=== PATIENT | male | born 1980 | race Hispanic/Latino ===

== ENCOUNTER 2021-07-06 18:23 | Emergency (ER) | payer OTHER ==
[2021-07-06 18:30] VITALS: BP 118/83
[2021-07-06] MEDS ORDERED: HYDROcodone/ACETAMINOPHEN 10-325MG TAB PO ONE (20:38)
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
[2021-07-06] MEDS ORDERED: METAXALONE 800 MG TAB PO NR (21:49)
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
== END 2021-07-06 22:20 | disposition home or self-care (01) ==
LOC: ED 18:23
DX: S13.4XXA Sprain of ligaments of cervical spine, initial encounter (principal); S39.012A Strain of muscle, fascia and tendon of lower back, initial encounter; Z79.899 Other long term (current) drug therapy; V89.2XXA Person injured in unspecified motor-vehicle accident, traffic, initial encounter; Y93.89 Activity, other specified; Y92.488 Other paved roadways as the place of occurrence of the external cause; Y99.8 Other external cause status
CPT/HCPCS: 72040; 72100; 99283